=== PATIENT | male | born 1965 | race Caucasian/White ===

== ENCOUNTER → 2025-08-14 | Outpatient (CLI) | payer MEDICAID, SELFPAY ==
--- NOTE | 2025-08-14 13:11 | CT_ITS ---
PROCEDURE: LOW DOSE CT LUNG SCREENING N/A REASON FOR EXAM: LUNG CANCER SCREENING Patient has smoked 2 pack per day for 48 years. Former smoker. Asthma. TECHNIQUE: Procedure Code: CTLUNGSCREEN Modality: CT Procedure: LOW DOSE CT LUNG SCREENING Coronal and Sagittal reconstruction series were provided. One or more dose reduction techniques were used (e.g., Automated exposure control, adjustment of the mA and/or kV according to patient size, use of iterative reconstruction technique). REFERENCE LINK: [facility] Lung-RADS RADIATION DOSE SUMMARY: CTDlvol: 4.02 mGy DLP: 133.91 mGycm COMPARISON: None FINDINGS: PULMONARY NODULES: (Only nodules >3mm are reported) Nodules described below are on series 1 unless otherwise specified. Pulmonary Nodules: 2 mm noncalcified nodule in the peripheral lateral aspect of the right lower lobe as seen on axial image number 123 mild scarring in the lingular segment of the left upper lobe and right middle lobe. Hardware:None Lymph Nodes:No significant lymph node seen. Heart and Vasculature:The heart is nonenlarged. Coronary Artery Calcifications: Absent Lungs and Airways: Mild emphysematous changes are present. Pleura:No pleural effusion. Upper Abdomen:Unremarkable Bones:Degenerative changes of the thoracic spine. CT/Low Dose CT Lung Screening IMPRESSION: 2 mm noncalcified nodule in the peripheral lateral aspect of the right lower lo be. Coronary artery calcification (CAC) is is absent Lung-RADS Category: 2 BENIGN (BASED ON IMAGING FEATURES OR INDOLENT BEHAVIOR). RECOMMEND 12-MONTH SCREENING LDCT. Other Significant Findings: Reading Location: [place] [id number]
== END | disposition home or self-care (01) ==
LOC: CT 13:11
PROVIDERS: PCP Nurse Practitioner Family; Referring Provider Nurse Practitioner Family; Visit Provider Nurse Practitioner Family
DX: Z12.2 Encounter for screening for malignant neoplasm of respiratory organs (principal); Z87.891 Personal history of nicotine dependence
CPT/HCPCS: 71271